=== PATIENT | female | born 1945 | race Caucasian/White ===

== ENCOUNTER 2020-06-09 19:18 | Emergency (ER) | payer MEDICARE ==
[~2020-06-09] VITALS: Wt 81.6 kg
[2020-06-09 19:24] VITALS: BP 156/102
== END 2020-06-09 20:12 | disposition home or self-care (01) ==
LOC: ED 19:18
DX: Z97.4 Presence of external hearing-aid (principal)

== ENCOUNTER → 2021-07-28 | Day surgery (SDC) | payer MEDICARE ==
[~2021-07-28] VITALS: Ht 152.4 cm; Wt 79.4 kg
[~2021-07-28] MED LIST: ALENDRONATE SOD70 M1 PO; CARTIA XT180 MG PO; FUROSEMIDE20 M1 PO; LEVOTHYROXINE100 MC1 PO; METFORMIN XR500 MG PO; METOPROLOL TART50 M1 PO; PRAVASTATIN SOD40 MG PO; XARELTO20 M1 PO
== END | disposition home or self-care (01) ==
LOC: SDC 07-23 10:15
PROVIDERS: ATTEND Ophthalmology
DX: Z11.59 Encounter for screening for other viral diseases (principal); Z20.822 Contact with and (suspected) exposure to COVID-19; G43.909 Migraine, unspecified, not intractable, without status migrainosus; I10 Essential (primary) hypertension; Z53.8 Procedure and treatment not carried out for other reasons

== ENCOUNTER → 2021-08-25 | Day surgery (SDC) | payer MEDICARE ==
[~2021-08-25] VITALS: Ht 152.4 cm; Wt 79.4 kg
[2021-08-25 07:30] VITALS: BP 155/80
[2021-08-25 09:12] VITALS: BP 118/92
[2021-08-25 09:27] VITALS: BP 146/63
[2021-08-25 09:38] VITALS: BP 155/74
== END | disposition home or self-care (01) ==
LOC: SDC 08-20 09:30 → EDSTATUS 08-20 09:30 → SDC 00:52
PROVIDERS: ATTEND Ophthalmology
DX: H25.811 Combined forms of age-related cataract, right eye (principal); I10 Essential (primary) hypertension; E11.9 Type 2 diabetes mellitus without complications; G43.909 Migraine, unspecified, not intractable, without status migrainosus; Z20.822 Contact with and (suspected) exposure to COVID-19; Z79.899 Other long term (current) drug therapy

== ENCOUNTER → 2021-09-22 | Day surgery (SDC) | payer MEDICARE ==
[~2021-09-22] VITALS: Ht 152.4 cm; Wt 79.4 kg
[~2021-09-22] MED LIST changes: +OCUFLOX 0.3% 5 M5 ML OPH; +PRED FORTE5 ML OP
[2021-09-22 07:59] VITALS: BP 145/61
[2021-09-22 09:07] VITALS: BP 134/69
[2021-09-22 09:22] VITALS: BP 140/78
[2021-09-22 09:37] VITALS: BP 125/77
== END | disposition home or self-care (01) ==
LOC: SDC 09-17 12:30
PROVIDERS: ATTEND Ophthalmology
DX: H25.812 Combined forms of age-related cataract, left eye (principal); I10 Essential (primary) hypertension; E11.9 Type 2 diabetes mellitus without complications; G43.909 Migraine, unspecified, not intractable, without status migrainosus; Z79.899 Other long term (current) drug therapy; Z20.822 Contact with and (suspected) exposure to COVID-19

== ENCOUNTER → 2024-03-28 | Outpatient (CLI) | payer MEDICARE ==
[2024-03-28 10:30] LABS: HEMATOCRIT 31.2 % (37.0-47.0); MEAN CELL VOLUME 90.4 fl (81.0-99.0); MEAN CORPUSCULAR HGB 28.4 pg (27.0-31.0); MEAN CORPUSCULAR HGB CONC 31.4 g/dl (33.0-37.0); MEAN PLATELET VOLUME 9.5 fl (9.6-12.3); PLATELET COUNT AUTOMATED 240 10*3/uL (130-400); RED BLOOD COUNT 3.45 10*6/uL (4.10-5.10); RED CELL DISTRI WIDTH 14.4 % (0-14.5)
[2024-03-28 10:34] LABS: MANUAL DIFF REFLEX YES
[2024-03-28 11:04] LABS: ALKALINE PHOSPHATASE 59 U/L (46-116); BUN 18 mg/dl (9-23); CHLORIDE 102 mmol/L (98-107); CHOLESTEROL 120 mg/dL (<200); FREE T4 1.62 ng/dl (0.89-1.76); LDL CHOLESTEROL 55 mg/dL (9-159); TOTAL PROTEIN 7.3 gm/dL (6.0-8.0); TRIGLYCERIDES 106 mg/dl (<150)
[2024-03-28 11:05] LABS: SGPT/ALT < 7 U/L (5-49)
[2024-03-28 11:05] LABS: BASOPHILS 2 % (0-1); PLATELET SUFFICIENCY NORMAL (NORMAL); TOTAL CELLS COUNTED 100 #CELLS
== END | disposition home or self-care (01) ==
LOC: LAB 10:07
PROVIDERS: ATTEND Family Medicine
DX: E11.22 Type 2 diabetes mellitus with diabetic chronic kidney disease (principal); N18.31 Chronic kidney disease, stage 3a; E03.9 Hypothyroidism, unspecified

== ENCOUNTER → 2024-05-06 | Outpatient (CLI) | payer MEDICARE ==
[2024-05-06 12:43] LABS: HEMATOCRIT 33.8 % (37.0-47.0); MEAN CELL VOLUME 88.9 fl (81.0-99.0); MEAN CORPUSCULAR HGB 27.9 pg (27.0-31.0); MEAN CORPUSCULAR HGB CONC 31.4 g/dl (33.0-37.0); MEAN PLATELET VOLUME 9.4 fl (9.6-12.3); PLATELET COUNT AUTOMATED 221 10*3/uL (130-400); RED CELL DISTRI WIDTH 14.3 % (0-14.5); WHITE BLOOD COUNT 6.1 10*3/uL (4.8-10.8)
[2024-05-06 12:59] LABS: MANUAL DIFF REFLEX YES
[2024-05-06 13:07] LABS: BASOPHILS 1 % (0-1); TOTAL CELLS COUNTED 100 #CELLS
[2024-05-06 13:08] LABS: BURR CELLS FEW; OVALOCYTES FEW; PLATELET SUFFICIENCY NORMAL (NORMAL); POLYCHROMASIA SLIGHT
[2024-05-06 13:10] LABS: POTASSIUM 4.5 mmol/L (3.4-5.1)
== END | disposition home or self-care (01) ==
LOC: LAB 12:15
PROVIDERS: ATTEND Internal Medicine Nephrology
DX: N18.30 Chronic kidney disease, stage 3 unspecified (principal); E55.9 Vitamin D deficiency, unspecified; N25.81 Secondary hyperparathyroidism of renal origin; D63.1 Anemia in chronic kidney disease

== ENCOUNTER → 2024-05-07 | Outpatient (CLI) | payer MEDICARE ==
[2024-05-07 13:22] LABS: BILIRUBIN Negative (Negative); BLOOD Trace-Lysed (Negative); CLARITY Clear (Clear); COLOR Yellow (Yellow); GLUCOSE Negative (Negative); KETONE Negative (Negative); LEUKO ESTERASE 1+ (Negative); NITRITE Negative (Negative); PH 5.5 (4.5-8.0); SPECIFIC GRAVITY 1.015 (1.001-1.030); UROBILINOGEN 0.2 E.U./dl (0.0-1.0)
[2024-05-07 13:31] LABS: URINE CREATININE RANDOM 63.57 mg/dL
== END | disposition home or self-care (01) ==
LOC: LAB 12:35
PROVIDERS: ATTEND Internal Medicine Nephrology
DX: N18.30 Chronic kidney disease, stage 3 unspecified (principal); N25.81 Secondary hyperparathyroidism of renal origin; E55.9 Vitamin D deficiency, unspecified; D63.1 Anemia in chronic kidney disease

== ENCOUNTER → 2024-12-11 | Outpatient (CLI) | payer MEDICARE ==
[2024-12-11 10:36] LABS: POTASSIUM 4.2 mmol/L (3.4-5.1)
[2024-12-11 10:39] LABS: ALKALINE PHOSPHATASE 73 U/L (46-116); BUN 15 mg/dl (9-23); CHLORIDE 99 mmol/L (98-107); CHOLESTEROL 128 mg/dL (<200); LDL CHOLESTEROL 61 mg/dL (9-159); TOTAL PROTEIN 7.3 gm/dL (6.0-8.0); TRIGLYCERIDES 144 mg/dl (<150)
[2024-12-11 10:40] LABS: SGPT/ALT < 7 U/L (5-49); VITAMIN D, 25-HYDROXY 76.7 ng/mL (30-100)
[2024-12-11 10:56] LABS: FREE T4 1.48 ng/dl (0.89-1.76)
[2024-12-11 12:52] LABS: HEMATOCRIT 31.3 % (37.0-47.0); MEAN CELL VOLUME 88.4 fl (81.0-99.0); MEAN CORPUSCULAR HGB CONC 31.6 g/dl (33.0-37.0); PLATELET COUNT AUTOMATED 229 10*3/uL (130-400); RED BLOOD COUNT 3.54 10*6/uL (4.10-5.10); RED CELL DISTRI WIDTH 13.3 % (0-14.5); WHITE BLOOD COUNT 5.5 10*3/uL (4.8-10.8)
[2024-12-11 12:53] LABS: MANUAL DIFF REFLEX YES
[2024-12-11 13:05] LABS: BILIRUBIN Negative (Negative); BLOOD Trace-Intact (Negative); CLARITY Clear (Clear); COLOR Yellow (Yellow); GLUCOSE Negative (Negative); KETONE Trace (Negative); LEUKO ESTERASE 1+ (Negative); NITRITE Negative (Negative); PH 7.5 (4.5-8.0)
[2024-12-11 13:37] LABS: EPITHELIAL CELLS 0-2
[2024-12-11 14:02] LABS: BASOPHILS 1 % (0-1); PLATELET SUFFICIENCY NORMAL (NORMAL); TOTAL CELLS COUNTED 100 #CELLS
[2024-12-11 14:03] LABS: OVALOCYTES FEW; SCHISTOCYTES FEW
== END | disposition home or self-care (01) ==
LOC: LAB 09:21
PROVIDERS: Family Medicine; ATTEND Internal Medicine Nephrology
DX: E11.22 Type 2 diabetes mellitus with diabetic chronic kidney disease (principal); N18.30 Chronic kidney disease, stage 3 unspecified; N25.81 Secondary hyperparathyroidism of renal origin; D63.1 Anemia in chronic kidney disease